=== PATIENT | male | born 1960 | race Caucasian/White ===

== ENCOUNTER 2019-02-19 08:38 | Outpatient (CLI) | payer BC ==
--- NOTE | 2019-02-19 09:24 | ULT ---
ULTRASOUND SCROTUM TESTICLES DOPPLER DUPLEX: DATE: 02/19/2019 HISTORY: ICD-10: N43.3 hydrocele. TECHNIQUE: Pollack-scale evaluation of intrascrotal contents. Color flow Doppler and spectral waveform analysis of the testicles. FINDINGS: Right testicle: 4.7 x 2.6 x 2.9 cm. Left testicle: 3.6 x 3.0 x 2.7 cm. Right epididymal head: 1.2 x 0.8 cm. Left epididymal head: 0.9 x 1.5 cm. There is a 0.7 x 0.7 x 0.6 cm cyst in the right epididymal head. Testicular echogenicity: Normal. Testicular blood flow: Demonstrated. Intratesticular mass: None. Hydrocele: Large on right. Small on left. Varicocele: None. IMPRESSION: 1. Large right hydrocele. 2. Small left hydrocele. 3. 0.7 cm right epididymal cyst. MANUEL Walsh POS: CET
== END 2019-02-19 08:39 | disposition home or self-care (01) ==
LOC: BICULT 08:38
PROVIDERS: ATTEND Surgery
DX: N43.3 Hydrocele, unspecified (principal); N50.3 Cyst of epididymis
CPT/HCPCS: 36415; 76870; 80053; 80061; 93976

== ENCOUNTER 2019-12-05 09:21 | Outpatient (CLI) | payer BC ==
--- NOTE | 2019-12-05 09:51 | RAD ---
XR Shoulder Lt 3 View STANDARD HISTORY: Left shoulder pain FINDINGS: No fracture or dislocation is identified. There are mild degenerative changes in the acromioclavicula r joint.
== END 2019-12-05 09:22 | disposition home or self-care (01) ==
LOC: BICRAD 09:21
PROVIDERS: ATTEND Family Medicine
DX: M25.512 Pain in left shoulder (principal)